=== PATIENT | male | born 1995 | race Caucasian/White ===

== ENCOUNTER → 2017-03-09 | Outpatient (CLI) | payer BC, OTHER | END | disposition home or self-care (01) | LOC: C.RDSM 12:18 | PROVIDERS: ATTEND Family Medicine | DX: M25.559 Pain in unspecified hip (principal) ==

== ENCOUNTER → 2017-06-22 | Outpatient (CLI) | payer OTHER | END | disposition home or self-care (01) | LOC: C.RDSM 10:13 | PROVIDERS: ATTEND Family Medicine Sports Medicine | DX: M25.551 Pain in right hip (principal); M25.552 Pain in left hip ==

== ENCOUNTER → 2017-06-24 | Outpatient (CLI) | payer OTHER ==
--- NOTE | 2017-06-24 22:24 | DIAGNOSTIC IMAGING REPORT ---
PELVIS WITHOUT CONTRAST (MRI) CLINICAL HISTORY: 22 years-old Male presenting with RIGHT HIP PAIN. TECHNIQUE: Multisequence, multiplanar MR imaging of the pelvis was performed without the use of intravenous contrast. IV contrast: None. COMPARISON: Plain radiographs of the pelvis from 03/09/2017. FINDINGS: Localizer images: Unremarkable. Bilateral hip joints congruent. Sacroiliac joints and pubic symphysis congruent. No bony edema. No large hip joint effusion. No degenerative change. No fluid along the pubic symphysis or superior inferior pubic rami. No abnormal signal intensity within the rectus abdominis or adductor muscle group. The bilateral khris are is intact. Flow related enhancement preserved and iliac vessels. Bilateral small hydroceles noted. Soft tissues within the pelvis including the prostate and seminal vesicles grossly normal. IMPRESSION: Normal noncontrast MR examination of the pelvis. Electronically signed by: Silviano Griffin M.D. 06/24/2017 10:23 PM Dictated Date/Time: 06/24/2017 10:15 PM
== END | disposition home or self-care (01) ==
LOC: C.MRI 21:07
PROVIDERS: ATTEND Family Medicine Sports Medicine
DX: M25.551 Pain in right hip (principal); R10.30 Lower abdominal pain, unspecified

== ENCOUNTER → 2017-07-31 | Outpatient (CLI) | payer OTHER ==
--- NOTE | 2017-07-31 15:44 | DIAGNOSTIC IMAGING REPORT ---
L SHOULDER MIN 2 VIEWS ROUTINE CLINICAL HISTORY: LEFT SHOULDER PAIN pain COMPARISON: None. DISCUSSION: The bones and joint spaces appear intact. There is no evidence of fracture, dislocation or bony disease. There is no evidence for soft tissue swelling. IMPRESSION: Negative study. The above report was generated using voice recognition software. It may contain grammatical, syntax or spelling errors. Electronically signed by: Yury Lew M.D. 07/31/2017 3:43 PM Dictated Date/Time: 07/31/2017 3:43 PM
== END | disposition home or self-care (01) ==
LOC: C.RAD 14:27
PROVIDERS: ATTEND Physical Medicine & Rehabilitation Sports Medicine
DX: M25.512 Pain in left shoulder (principal)